=== PATIENT | female | born 1960 | race Caucasian/White ===

== ENCOUNTER → 2022-05-17 | Emergency (ER) | payer OTHER ==
[~2022-05-17] VITALS: Ht 170.2 cm; Wt 108.9 kg
[~2022-05-17] MED LIST: CRESTOR40 MG PO; DIAZEPAM10 MG PO; FARXIGA10 MG PO; LEVOXYL137 MCG PO; PANTOPRAZOLE SO20 MG PO; RAMIPRIL2.5 MG PO
== END | disposition designated cancer center or children's hospital (05) ==
LOC: ER 20:20
DX: S06.4XAA Epidural hemorrhage with loss of consciousness status unknown, initial encounter (principal); X58.XXXA Exposure to other specified factors, initial encounter; Y93.9 Activity, unspecified; Y92.9 Unspecified place or not applicable; Y99.9 Unspecified external cause status; I10 Essential (primary) hypertension; Z85.850 Personal history of malignant neoplasm of thyroid; Z91.040 Latex allergy status; Z88.0 Allergy status to penicillin; Z88.2 Allergy status to sulfonamides; Z88.8 Allergy status to other drugs, medicaments and biological substances; Z20.822 Contact with and (suspected) exposure to COVID-19

== ENCOUNTER 2024-07-01 14:09 | Outpatient (CLI) | payer OTHER | END 2024-07-01 14:22 | disposition home or self-care (01) | LOC: MRI 14:09 | PROVIDERS: ATTEND Anesthesiology | DX: M54.50 Low back pain, unspecified (principal); M17.11 Unilateral primary osteoarthritis, right knee | CPT/HCPCS: 72148; 73721 ==